=== PATIENT | male | born 1990 | race Caucasian/White ===

== ENCOUNTER 2020-09-09 15:52 | Outpatient (CLI) | payer OTHER, SELFPAY | END 2020-09-09 15:53 | disposition home or self-care (01) | LOC: ANHCOVIDVC 15:52 | PROVIDERS: PCP Family Medicine | DX: Z23 Encounter for immunization (principal) | CPT/HCPCS: 0001A; 91300 ==

== ENCOUNTER 2020-09-30 15:55 | Outpatient (CLI) | payer OTHER, SELFPAY | END 2020-09-30 15:56 | disposition home or self-care (01) | LOC: ANHCOVIDVC 15:56 | PROVIDERS: PCP Family Medicine | DX: Z23 Encounter for immunization (principal) | CPT/HCPCS: 0002A; 91300 ==

== ENCOUNTER 2021-10-09 12:14 | Outpatient (CLI) | payer OTHER, SELFPAY ==
--- NOTE | ~2021-10-09 | XR_ITS ---
EXAM: XR lumbar spine 2-3V HISTORY: M54.50 - Low back pain, unspecified LT LEG RADICULOPATHY . COMPARISON: None available. FINDINGS: 5 nonrib-bearing lumbar-type vertebral bodies. Pedicles intact. Normal vertebral body alig nment. Vertebral body heights preserved. Disc spaces maintained. Normal facets and posterior elements .. IMPRESSION: Normal lumbar spine radiograph findings. Reviewed, dictated and finalized at location K.
== END 2021-10-09 12:15 | disposition home or self-care (01) ==
PROVIDERS: PCP Family Medicine; Visit Provider Nurse Practitioner Family
DX: M54.50 Low back pain, unspecified (principal)
CPT/HCPCS: 72100

== ENCOUNTER 2021-12-01 12:15 | Outpatient (CLI) | payer OTHER, SELFPAY ==
--- NOTE | ~2021-12-01 | XR_ITS ---
XR hip LT min 2V DATE: 12/01/2021 12:34 INDICATION: Left hip pain TECHNIQUE: AP and lateral views COMPARISON: None FINDINGS: No fracture or dislocation, avascular necrosis or bone destruction. Left hip joint space ap pears well preserved. Pubic symphysis and included portions of sacroiliac joints appear unremarkable. IMPRESSION: Negative Reviewed, dictated and finalized at location A. IMPRESSION: Negative
== END 2021-12-01 12:16 | disposition home or self-care (01) ==
PROVIDERS: PCP Family Medicine; Visit Provider Nurse Practitioner Family
DX: M54.16 Radiculopathy, lumbar region (principal)
CPT/HCPCS: 73502

== ENCOUNTER 2021-12-02 12:33 | Outpatient (CLI) | payer OTHER, SELFPAY ==
--- NOTE | ~2021-12-02 | MR_ITS ---
EXAMINATION: MR lumbar spine wo con DATE: 12/02/2021 13:13 INDICATION: Lumbar radiculopathy and left hip pain TECHNIQUE: Magnetic resonance imaging (MRI) of the lumbar spine was performed without intravenous con trast. Sequences included sagittal T2-weighted FSE, sagittal T2-weighted FS FSE, sagittal T1-weighted FSE, and axial T2-weighted FSE. COMPARISON: None FINDINGS: 4 mm retrolisthesis L5 on S1. Vertebral body heights are normal. Normal marrow signal. Disc desiccat ion with mild disc height loss and annular fissure with disc extrusion at L5-S1. The conus medullaris terminates at L1-L2. There is normal signal in the caudal spinal cord. Paravertebral soft tissues ar e unremarkable. The following disc levels are specifically discussed: T12-L1 and L1-L2: The disc does not extend beyond the endplate margin. There is mild bilateral facet joint osteoarthritis. There is no neural foraminal stenosis. There is no central canal stenosis. L1-L2 through L4-L5: Minimal to mild disc bulges. There is minimal to mild bilateral facet joint oste oarthritis. There is mild bilateral neural foraminal stenosis at L3-L4 and L4-L5. There is no central canal stenosis. L5-S1: Disc is mildly bulging with superimposed annular fissure and left paracentral disc extrusion w hich extends inferiorly and laterally to 12 mm below level of the superior endplate of S1 and into la teral recess at the entrance of the left S1 neural foramen. There is mild bilateral facet joint osteo arthritis. There is mild bilateral L5-S1 neural foraminal stenosis. There is mild central canal steno sis.. There is narrowing of the left and right lateral recesses, greater on the left where the disc e xtrusion appears to compress the traversing left S1 nerve root. IMPRESSION: 1. Minimal to mild lumbar spondylosis most notable for an annular fissure and left paracentral disc e xtrusion at L5-S1 which extends into the left lateral recess compressing the traversing left S1 nerve root. Correlate clinically for left-sided muscle weakness of plantar flexion, sensory change of the lateral foot and small toe, and depressed ankle reflex. Reviewed, dictated and finalized at location B. IMPRESSION: 1. Minimal to mild lumbar spondylosis most notable for an annular fissure and l eft paracentral disc extrusion at L5-S1 which extends into the left lateral rec ess compressing the traversing left S1 nerve root. Correlate clinically for lef t-sided muscle weakness of plantar flexion, sensory change of the lateral foot and small toe, and depressed ankle reflex.
== END 2021-12-02 12:34 | disposition home or self-care (01) ==
LOC: ANHIMG 12:36
PROVIDERS: PCP Family Medicine; Visit Provider Nurse Practitioner Family
DX: M47.26 Other spondylosis with radiculopathy, lumbar region (principal)
CPT/HCPCS: 72148

== ENCOUNTER 2023-11-08 14:35 | Outpatient (CLI) | payer OTHER, SELFPAY ==
--- NOTE | ~2023-11-08 | CT_ITS ---
EXAMINATION: CT sinus wo con DATE: 11/08/2023 14:58 INDICATION: Nasal congestion TECHNIQUE: Computed tomography (CT) of the paranasal sinuses was performed without intravenous contra st. The dose-length product was 389.92 mGy-cm. Automated exposure control and iterative reconstructio n technique were employed. COMPARISON: None FINDINGS: There is no significant mucosal thickening or air-fluid level. No mucoperiosteal reaction. No air-fluid levels. Leftward nasal septal deviation. Ostiomeatal units are patent. Mastoids are pneu matized. IMPRESSION: 1. No significant sinus disease. Reviewed, dictated and finalized at location B.
== END 2023-11-08 14:36 | disposition home or self-care (01) ==
PROVIDERS: PCP Family Medicine
DX: R09.81 Nasal congestion (principal); J31.0 Chronic rhinitis; J32.4 Chronic pansinusitis; J34.2 Deviated nasal septum; J34.89 Other specified disorders of nose and nasal sinuses
CPT/HCPCS: 70486

== ENCOUNTER 2024-05-19 11:13 | Outpatient (CLI) | payer OTHER, SELFPAY ==
--- NOTE | ~2024-05-19 | US_ITS ---
EXAMINATION: US carotid duplex BI DATE: 05/19/2024 11:41 INDICATION: Right neck pain. Familial hypercholesterolemia. TECHNIQUE: Grayscale, color Doppler, and pulsed Doppler images of the cervical carotid arteries were obtained. The degree of vessel stenosis is placed in one of the following categories: normal, <50%, 5 0-69%, >=70% but less than near-occlusion, near-occlusion, or total occlusion. Note that percent sten osis relative to normal distal artery lumen diameter is indirectly measured from velocity measurement s as described by Compa, et al. Radiology 2003; [id number]. COMPARISON: None. FINDINGS: RIGHT: The right common carotid artery (CCA) peak systolic velocity (PSV) is 109 cm/s. The right internal ca rotid artery (ICA) PSV is 56 cm/s. The right ICA end-diastolic velocity (EDV) is 23 cm/s. The right I CA/CCA PSV ratio is 0.5. Grayscale and color Doppler images yield an estimate of 0% diameter reductio n from plaque in the ICA. There is antegrade flow in the right vertebral artery. LEFT: The left CCA PSV is 90 cm/s. The left ICA PSV is 74 cm/s. The left ICA EDV is 29 cm/s. The left ICA/C CA PSV ratio is 0.8. Grayscale and color Doppler images yield an estimate of 0% diameter reduction fr om plaque in the ICA. There is antegrade flow in the left vertebral artery. IMPRESSION: 1. Normal internal carotid arteries. Reviewed, dictated and finalized at location A. [employer]ISHER
== END 2024-05-19 11:14 | disposition home or self-care (01) ==
LOC: MICIMG 11:14
PROVIDERS: PCP Family Medicine; Visit Provider Nurse Practitioner Family
DX: E78.01 Familial hypercholesterolemia (principal); M54.2 Cervicalgia
CPT/HCPCS: 93880

== ENCOUNTER 2024-11-26 11:20 | Outpatient (CLI) | payer OTHER, SELFPAY ==
--- NOTE | ~2024-11-26 | XR_ITS ---
3 VIEWS LUMBAR SPINE Ordering provider: Trini Castillo APRN History: . M54.50 - Low back pain, unspecified . Comparison: October 09, 2021 FINDINGS: VERTEBRAL BODIES: No visible fracture or subluxation. DISK SPACES: Normal. SOFT TISSUES: Normal. Fecal material loaded in the colon. IMPRESSION: No acute osseous abnormality lumbar spine. . Constipation Reviewed, dictated and finalized at location A.
--- NOTE | ~2024-11-26 | XR_ITS ---
XR sacrum coccyx min 2V Ordering provider: Trini Castillo APRN History: . M54.50 - Low back pain, unspecified . Comparison: None. FINDINGS: BONES: No acute fracture or dislocation. Bending of the coccyx is noted. JOINTS: The sacroiliac joint spaces are narrowed bilaterally SOFT TISSUES: Soft tissues are normal. IMPRESSION: No acute osseous abnormality sacrum and coccyx. If still Clinically suspicious CT is advised. Bilateral sacroiliacs. Reviewed, dictated and finalized at location A.
== END 2024-11-26 11:21 | disposition home or self-care (01) ==
LOC: MICIMG 11:21
PROVIDERS: PCP Family Medicine; Visit Provider Nurse Practitioner Adult Health
DX: M51.360 Other intervertebral disc degeneration, lumbar region with discogenic back pain only (principal); M46.1 Sacroiliitis, not elsewhere classified; K59.00 Constipation, unspecified
CPT/HCPCS: 72100; 72220